=== PATIENT | male | born 1965 | race Caucasian/White ===

== ENCOUNTER → 2018-12-20 | Day surgery (SDC) | payer BC ==
[~2018-12-20] MED LIST: FENTANYL CITRATE/PF 100MCG/2 ML INJ ONE; JARDIANCE PO; LIDOCAINE HCL 2% LOCAL INJ 5 ML SDV VIAL INJ ONE; MIDAZOLAM HCL 2 MG/2 ML VIAL ONE; PROPOFOL IV EMULSION 10 MG/ML 50 ML VIAL ONE; RAMIPRIL10 MG PO; [UNRECOGNIZED DRUG - OTHER] PO
--- OUTSIDE RECORDS SUMMARY | 2018-12-20 09:56 | XMS REPORT | Clinical Summary ---
Author Author ANDRE [facility] Address Unknown Phone Unavailable Care Team Providers Care Fisher Name Role Phone Frankie Neal MD PCP Allergies No Known Allergies Medications End Date Status Medication Sig Dispensed Refills Start Date Active HYDROcodone-acetaminophen Take 1 tablet 0 (NORCO 10-325) 10-325 mg by mouth per tablet every 6 (six) hours as needed for Pain. Active acetaminophen (TYLENOL) Take 1,000 mg 0 500 MG tablet by mouth every 6 (six) hours as needed for Pain. Active empagliflozin (JARDIANCE) Take 10 mg by 0 10 mg tabletIndications: mouth daily. type 2 diabetes mellitus Active ramipril (ALTACE) 10 MG Take 10 mg by 0 capsule mouth daily. Active linagliptin-metFORMIN Take 1 tablet 0 (JENTADUETO XR) 5-1,000 by mouth mg TBph daily. Active Problems Not on file Social History Date Tobacco Use Types Packs/Day Years Used Light Tobacco Smoker Smokeless Tobacco: Snuff Current User Alcohol Use Drinks/Week oz/Week Comments No Sex Assigned at Date Recorded Not on file Industry Job Start Date Occupation Not on file Not on file Not on file Travel End Travel History Travel Start No recent travel history available. Last Filed Vital Signs Not on file Plan of Treatment Not on file Results Not on fileafter 12/19/2017 Insurance Payer Benefit Subscriber ID Type Phone Address Plan / Group [employer]UE [employer] BCBS ADV xxxxxxxxxxxx [phone] [address] [place] [address] EXCHANGE
--- OUTSIDE RECORDS SUMMARY | 2018-12-20 09:56 | XMS REPORT ---
Author Author [facility] Address Unknown Phone Unavailable Care Team Providers Care Fan Mail Editor Name Role Phone ROCIO HERNANDEZ Unavailable Unavailable Problems This patient has no known problems. Allergies, Adverse Reactions, Alerts This patient has no known allergies or adverse reactions. Medications This patient has no known medications. Results Test Description Test Time Test Comments Text Results Atomic Results Result Comments BODY FLUID CULTURE + GRAM STAIN 2017-11-12 18:13:00 CULTURE (BEAKER) (test gwkq=9969) STAPHYLOCOCCUS AUREUS 4+ Staphylococcus aureus Clindamycin (test code=10) Erythromycin (test code=4) Linezolid (test code=40) Nitrofurantoin (test code=23) Oxacillin (test code=14) Rifampin (test code=43) Tetracycline (test code=2) Trimethoprim + Sulfamethoxazole (test code=47) Vancomycin (test code=13) CULTURE (BEAKER) (test gaxt=0145) STAPHYLOCOCCUS AUREUS 4+ Staphylococcus aureusof a second type Clindamycin (test code=10) Erythromycin (test code=4) Linezolid (test code=40) Oxacillin (test code=14) Rifampin (test code=43) Tetracycline (test code=2) Trimethoprim + Sulfamethoxazole (test code=47) Vancomycin (test code=13) GRAM STAIN RESULT (BEAKER) (test xikr=4991) 4+ WBCs GRAM STAIN RESULT (BEAKER) (test vzyz=[id number]) 4+ gram positive cocci in clusters CT, FINE NEEDLE [id number] 17:16:00Reason for Exam:->mass of right thighFINAL REPORT INDICATION:52-year-old male with night sweats and enlarging painful lumps in the medial and posterior right thigh. COMPARISON:None available. TECHNIQUE:CT-guided aspiration of right medial thigh collection.CT-guided drain placement of right posterior thigh collection. Originally planned was a CT-guided biopsy of a probable necrotic mass of the right thigh. However, at the time of the procedure needle placement revealed pus under pressure so that abscess the likely diagnosis. There was no readily attainable tissue by biopsy that could be used for cytology or histology. The exam was performed according to our department dose-optimization protocol, which includes automated exposure control, adjustments of mA and kV according to patient size. Iterative reconstructions are also sometimes employed. FINDINGS: The procedure was explained to the patient and informed consent was signed. The patient was positioned supine and preliminary images confirmed a large low density collection (versus low density mass) in the medial and posterior right thigh. Timeout was performed. To sedate the patient Versed and Fentanyl were administered, as described below. Medial thigh collection:The patient's skin was prepped and draped in standard sterile fashion. 2% lidocaine was used for local anesthesia. Using a anteromedial approach and CT-guidance, a 17-gauge needle was placed into the low density collection. Pus under pressure was encountered and a 4 cc sample of the possible was sent to microbiology. 500 cc of pus were aspirated. Repeat CT showed collapse of the medial thigh collection with a persistent posterior thigh collection. Therefore, the patient was repositioned and a second procedure was performed. Posterior thigh collection:The patient's skin was prepped and draped in the standard sterile fashion. 2% lidocaine was used for local anesthesia. Using a posterior approach and CT guidance a 19-gauge introducer needle was placed into the low density collection. Pus was encountered. A guidewire was placed through the introducer needle and then the track was dilated serially with a 8 [place] and 10 [place] dilator. A 12 [place] drainage catheter was placed over the guidewire and into the collection. Stiffener and guidewire was removed and the catheter was pigtailed. CT demonstrated the catheter in good position. Catheter was sutured to the skin and connected to bulb suction. Patient tolerated the procedure well. Patient and his were instructed on how to use the catheter, including discharging the bulb and tracking drain output. The patient has a follow-up appointment with the taty physician, Dr. Hernandez, in six days. PROCEDURAL SEDATION:Procedural sedati on was used with Versed 2.0 mg IV and Fentanyl 50 mcg IV administered. The depar tment of radiology nurse was present at the time of procedure. Monitored cardior espiratory function during conscious sedation was performed under the radiologis t's supervision. Total monitoring time was approximately 75 minutes. IMPRESSION: CT-guided aspiration of medial thigh collection.CT-guided placement of 12 [place] drainage catheter in posterior thigh collection.Pus encountered and sample sent to microbiology.No tissue could be obtained, so no biopsy performed. Procedure and findings discussed with the referring physician, Dr. Hernandez, at the time of t he procedure. Signed: Riri Maria MDReport Verified Date/Time: 11/09/2017 17:16:33 Reading Location: [facility] C013X Ortho Consult Reading Room Electronicall y signed by: RIRI MARIA M.D. on 11/09/2017 05:[address], DRAINAGE W/ CATH [id number] 17:16:00Reason for exam:->Right Thigh MassFINAL REPORT INDICATION:52-year-old male with night sweats and enlarging painful lumps in the medial and posterior right thigh. COMPARISON:None available. TECHNIQUE:CT-guided aspiration of right medial thigh collection.CT- guided drain placement of right posterior thigh collection. Originally planned was a CT-guided biopsy of a probable necrotic mass of the right thigh. However, at the time of the procedure needle placement revealed pus under pressure so that abscess the likely diagnosis. There was no readily attainable tissue by bi opsy that could be used for cytology or histology. The exam was performed accord ing to our department dose-optimization protocol, which includes automated expos ure control, adjustments of mA and kV according to patient size. Iterative recon structions are also sometimes employed. FINDINGS: The procedure was explained to the patient and informed consent was signed. The patient was positioned supine and preliminary images confirmed a large low density collection (versus low dens ity mass) in the medial and posterior right thigh. Timeout was performed. To date the patient Versed and Fentanyl were administered, as described below. Medi al thigh collection:The patient's skin was prepped and draped in standard steril e fashion. 2% lidocaine was used for local anesthesia. [facility]ance, a 17-gauge needle was placed into the low density collecti on. Pus under pressure was encountered and a 4 cc sample of the possible was sen t to microbiology. 500 cc of pus were aspirated. Repeat CT showed collapse of th e medial thigh collection with a persistent posterior thigh collection. Therefor e, the patient was repositioned and a second procedure was performed. Posterior thigh collection:The patient's skin was prepped and draped in the standard steri le fashion. 2% lidocaine was used for local anesthesia. Using a posterior approa ch and CT guidance a 19-gauge introducer needle was placed into the low density collection. Pus was encountered. A guidewire was placed through the introducer n eedle and then the track was dilated serially with a 8 [place] and 10 [place] dila tor. A 12 [place] drainage catheter was placed over the guidewire and into the co llection. Stiffener and guidewire was removed and the catheter was pigtailed. CT demonstrated the catheter in good position. Catheter was sutured to the skin and connected to bulb suction. Patient tolerated the procedure well. Patient and his were instructed on how to use the catheter, including discharging the bulb and tracking drain output. The patient has a follow-up appointment with the [facility] porter physician, Dr. Hernandez, in six days. PROCEDURAL SEDATION:Procedural sedati on was used with Versed 2.0 mg IV and Fentanyl 50 mcg IV administered. [facility] nurse was present at the time of procedure. Monitored cardior espiratory function during conscious sedation was performed under the radiologis t's supervision. Total monitoring time was approximately 75 minutes. IMPRESSION: CT-guided aspiration of medial thigh collection.CT-guided placement of 12 [place] drainage catheter in posterior thigh collection.Pus encountered and sample sent to microbiology.No tissue could be obtained, so no biopsy performed. Procedure and findings discussed with the referring physician, Dr. Hernandez, at the time of t procedure. Signed: Riri Maria MDReport Verified Date/Time: 11/09/2017 17:16:33 Reading Location: [facility] B1 C013X Ortho Consult Reading Room Electronicall y signed by: RIRI MARIA M.D. on 11/09/2017 05:16 PM PLATELET COUNT 2017-11-09 11:03:00* Test Item Value Reference Range Comments PLATELET COUNT (BEAKER) (test xtvb=829) 551 K/CU MM 150-450 PT/[id number] 10:55:00* Test Item Value Reference Range Comments PROTIME (BEAKER) (test vtrt=161) 16.1 seconds 11.7-14.7 INR (BEAKER) (test rusq=466) 1.3 <=5.9 PARTIAL THROMBOPLASTIN TIME (BEAKER) (test sfaq=885) 35.4 seconds 22.5-36.0 RECOMMENDED COUMADIN/WARFARIN INR THERAPY RANGESSTANDARD DOSE: 2.0 - 3.0 Inclu clarissa: PROPHYLAXIS for venous thrombosis, systemic embolization; TREATMENT for chaz ous thrombosis and/or pulmonary embolus.HIGH RISK: Target INR is 2.5-3.5 for pat ients with mechanical heart valves.
[2018-12-20 13:35] VITALS: BP 144/96
--- NOTE | 2018-12-20 20:11 | Operative Report ---
DATE OF PROCEDURE: SURGEON: Mauricio Arreguin MD PROCEDURE PERFORMED: Colonoscopy. PREOPERATIVE DIAGNOSIS: Colon cancer screening. POSTOPERATIVE DIAGNOSIS: Six polyps removed from the colon. PREOPERATIVE MEDICATIONS: Consisted of IV sedation administered under MAC anesthesia. PROCEDURE IN DETAIL: Using an [employer] video colonoscope was inserted in the patient's rectum and advanced without difficulty to the level of the cecum. The colon was studied from that level back down to the rectum. In the cecum was a 3 mm size sessile polyp, which was removed with the hot biopsy forceps. In the ascending colon, there were 2 polyps, 3 and 4 mm each, removed with the hot biopsy forceps. In the sigmoid colon, there was a 4 mm size polyp, which was removed with the hot biopsy forceps. Next was 8 mm size polyp, which was removed with the electrical snare cautery and down in the rectum was 2.5 cm size polyp that was removed with the hot biopsy forceps. The colonoscope was withdrawn from the patient's rectum and the procedure was ended. Mauricio Arreguin MD SAF/MODL /[id number]
== END | disposition home or self-care (01) ==
LOC: OR 09:54
PROVIDERS: ATTEND Internal Medicine Gastroenterology
DX: Z12.11 Encounter for screening for malignant neoplasm of colon (principal); D12.2 Benign neoplasm of ascending colon; D12.8 Benign neoplasm of rectum; E11.9 Type 2 diabetes mellitus without complications; I10 Essential (primary) hypertension; G47.33 Obstructive sleep apnea (adult) (pediatric); Z01.810 Encounter for preprocedural cardiovascular examination; Z79.84 Long term (current) use of oral hypoglycemic drugs; Z68.35 Body mass index [BMI] 35.0-35.9, adult
CPT/HCPCS: 36415; 45384; 45385; 82948; 93005; J2001; J2250; J2704; J3010; 45378